=== PATIENT | female | born 1935 | race Caucasian/White ===

== ENCOUNTER 2017-10-04 07:56 | Emergency (ER) | payer MEDICARE, BC, OTHER ==
[2017-10-04 08:15] VITALS: BP 157/96
--- NOTE | 2017-10-04 08:16 | UC ---
Cardiac HPI - HPI Summary HPI Summary: SUDDEN ONSET OF SHARP CHEST PAIN THIS MORNING WHILE SITTING AT HER COMPUTER. LASTED FOR ABOUT 20 MINUTES THEN RESOLVED. PT TOOK 1 ANACIN. HAD SOME RIGHT ARMPIT PAIN WELL BUT DENIES ANY SOB, NAUSEA, SWEATS OR FEVER. HAD A SIMILAR EPISODE ABOUT 1 MONTH AGO. LASTED FOR A SHORTER PERIOD OF TIME. PT DID NOT SEEK MEDICAL EVAL AT THAT TIME. - History of Current Complaint Stated Complaint: CHEST PAIN Time Seen by Provider: 10/04/17 08:02 Hx Obtained From: Patient, Family/Survival Specialist - Onset/Duration: Sudden Onset, Lasting Minutes, Resolved Initial Severity: Severe Current Severity: None Pain Intensity: 0 Chest Pain Location: Diffuse Character: Sharp/Stabbing Aggravating Factor(s): Nothing Alleviating Factor(s): Spontaneous Resolution Associated Signs & Symptoms: Positive: Chest Pain. Negative: Weakness, SOB, Syncope, Fever, Diaphoresis, Nausea/Vomiting, Palpitations, Cough - Allergy/Home Medications Allergies/Adverse Reactions: Allergies Allergy/AdvReac Type Severity Reaction Status Date / Time No Known Allergies Allergy Verified 10/04/17 08:15 Home Medications: Home Medications Aspirin/Caffeine [Anacin 500-32 mg Tablet] 1 tab PO ONCE 10/04/17 [History Confirmed 10/04/17] Cholecalciferol TAB* [Vitamin D TAB*] 1 tab PO DAILY 10/04/17 [History Confirmed 10/04/17] Cyanocobalamin TAB* [Vitamin B12 TAB*] 1 tab PO DAILY 10/04/17 [History Confirmed 10/04/17] Omeprazole 20 mg PO DAILY 10/04/17 [History Confirmed 10/04/17] amLODIPine TAB* [Norvasc 5 mg TAB*] 5 mg PO DAILY 10/04/17 [History Confirmed ] PMH/Surg Hx/FS Hx/Imm Hx Cardiovascular History: Hypertension - Surgical History Surgical History: None Surgery Procedure, Year, and Place: Bilat OOPHROECTOMY, PARATHYROIDECTOMY - Family History Known Family History: Positive: Cardiac Disease, Hypertension - Social History Alcohol Use: Occasionally Substance Use Type: None Smoking Status (MU): Never Smoked Tobacco - Immunization History Most Recent Influenza Vaccination: 2012 Most Recent Tetanus Shot: MORE THAN SIX YEARS AGO Most Recent Pneumonia Vaccination: 2011 Review of Systems Constitutional: Negative Respiratory: Negative Cardiovascular: Chest Pain Gastrointestinal: Negative Genitourinary: Negative All Other Systems Reviewed And Are Negative: Yes Physical Exam Triage Information Reviewed: Yes Appearance: Well-Appearing, No Pain Distress, Well-Nourished Vital Signs: Initial Vital Signs Temp 98.3 F 10/04/17 08:09 Pulse 69 10/04/17 08:09 Resp 18 10/04/17 08:09 BP 157/96 10/04/17 08:09 Pulse Ox 99 10/04/17 08:09 Vital Signs Reviewed: Yes Eyes: Positive: Conjunctiva Clear ENT: Positive: Hearing grossly normal Neck: Positive: Supple, Nontender, No Lymphadenopathy Respiratory Exam: Normal Cardiovascular Exam: Normal Abdomen Description: Positive: Soft Musculoskeletal: Positive: No Edema Neurological: Positive: Alert Psychological: Positive: Normal Response To Family, Age Appropriate Behavior Skin: Negative: rashes Diagnostics - EKG Cardiac Rate: NL - 71BPM Cardiac Rhythm: Sinus: Normal Ectopy: None ST Segment: Non-Specific - T-WAVE FLATTENING DIFFUSELY AND INVERSION V3-V6 - Assessment/Plan Course Of Treatment: TO [facility] BY [facility]. EKG UNCHANGED FROM 07/10/2013. - Clinical Impression Provider Diagnoses: CHEST PAIN Discharge - Discharge Plan Condition: Stable Disposition: OTHER Discharge Disposition Comment: TO [facility] BY [facility] Patient Education Materials: Chest Pain (ED) Referrals: Ian Hoffman MD [Primary Care Provider] - If Needed Additional Instructions: GO DIRECTLY TO THE [facility] FROM HERE FOR FURTHER EVALUATION.
== END 2017-10-04 08:26 ==
LOC: UCEAST 07:56
DX: R07.89 Other chest pain (principal); I10 Essential (primary) hypertension
CPT/HCPCS: 93005; 99211; G0463

== ENCOUNTER 2017-10-04 08:38 | Emergency (ER) | payer MEDICARE, BC ==
[2017-10-04 09:18] LABS: ABS Basophils 0 10^3/ul (0-0.2); ABS Eosinophils 0.1 10^3/ul (0-0.6); ABS Lymphocytes 1.9 10^3/ul (1.0-4.8); ABS Monocytes 0.6 10^3/ul (0-0.8); ABS Neutrophils 3.6 10^3/ul (1.5-7.7); ABS Nucleated RBC 0 10^3/ul; Eosinophil % 2.1 % (0-6); Hematocrit 41 % (35-47); Lymphocyte % 30.2 % (25-47); Mean Corpuscular HGB Conc 34 g/dl (31-36); Mean Corpuscular Hemoglobin 32 pg (27-31); Mean Corpuscular Volume 93 fL (80-97); Mean Platelet Volume 8 um3 (7.4-10.4); Nucleated Red Blood Cells % 0; Platelet Count 310 10^3/ul (150-450); Red Blood Count 4.45 10^6/ul (4.0-5.4); Red Cell Distribution Width 14 % (10.5-15); White Blood Count 6.3 10^3/ul (3.5-10.8)
[2017-10-04] MEDS ORDERED: amLODIPine TAB* 5 MG PO ONE (09:23)
[2017-10-04 09:33] LABS: EGFR Non-African American 110.4 (>60)
--- NOTE | 2017-10-04 09:49 | RAD ---
INDICATION: Chest pain radiating to the back COMPARISON: Most recent chest x-ray is dated November 01, 2016 TECHNIQUE: Single AP portable view of the chest was obtained. FINDINGS: Image quality is compromised due to the relative inferiority of a portable chest x-ray. The heart and mediastinum exhibit normal size and contour. The lungs are grossly clear. There is no evidence of a large pleural effusion. Visualized bones are normal for the patient's age. IMPRESSION: No radiographic evidence for acute cardiopulmonary abnormality on this portable chest x-ray.
[2017-10-04] MEDS ORDERED: Iohexol 350* (CONTRAST) 500 ML MDV IV ONE (11:59)
--- NOTE | 2017-10-04 12:30 | RAD ---
INDICATION: Chest pain, elevated d-dimer. COMPARISON: Comparison is made with the prior CT of the chest from March 15, 2010 and a prior chest x-ray exam from October 04, 2017. TECHNIQUE: A CT angiogram of the chest was performed with intravenous following intravenous injection of 80 ml of Omnipaque 350 nonionic contrast. Contiguous axial sections were obtained from the lung apices through the lung bases. Images were reconstructed in the coronal and sagittal planes. FINDINGS: There is relatively homogeneous opacification of the pulmonary arteries. No intraluminal filling defect or pulmonary embolism is seen. The heart is within normal limits in size. No pericardial effusion is present. The thoracic aorta is normal in caliber and demonstrates homogeneous contrast opacification. No significant enlarged mediastinal or hilar lymph nodes are seen. There is mild dependent bilateral lower lobe subsegmental atelectasis. The lungs are otherwise clear. No pleural effusion is seen. No significant focal osseous abnormality is seen. IMPRESSION: NO EVIDENCE FOR PULMONARY EMBOLISM.
[2017-10-04 14:22] VITALS: BP 131/86
--- NOTE | 2017-10-04 14:43 | RAD ---
INDICATION: Right thumb injury COMPARISON: None TECHNIQUE: AP, lateral, and oblique views were obtained. FINDINGS: There is no acute fracture. 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 The soft tissues are mildly prominent. There is no foreign body. IMPRESSION: NO ACUTE FRACTURE.
--- NOTE | 2017-10-04 20:27 | ED ---
Rickey Mello Stephanie, scribed for Rachna Garza MD on 10/04/17 at 0905 . HPI Chest Pain - HPI Summary HPI Summary: The pt is an 82 y/o F presenting to the ED with c/o CP that began at 07:45 today. The CP lasted 15 minutes and radiated into her back and R arm. She denies SOB, N/V. Pt chewed aspirin s/p CP. The pt denies current CP. The pt reports a similar event where the CP occurred while sitting and lasted about 15 minutes with spontaneous resolution. The pt usually takes Amlodipine 5 mg but she did not take this medication today. - History of Current Complaint Chief Complaint: EDChestPainROMI Time Seen by Provider: 10/04/17 08:58 Hx Obtained From: Patient Onset/Duration: Started Hours Ago - 2, Resolved Timing: Intermittent, Lasting Minutes - 15 Current Severity: None Pain Intensity: 0 Pain Scale Used: 0-10 Numeric Chest Pain Location: Diffuse Chest Pain Radiates: Yes Chest Pain Radiates To:: Back, Arm - R Aggravating Factor(s): Nothing Alleviating Factor(s): Nothing Associated Signs and Symptoms: Negative: Shortness of Breath, Nausea, Vomiting - Allergy/Home Medications Allergies/Adverse Reactions: Allergies Allergy/AdvReac Type Severity Reaction Status Date / Time No Known Allergies Allergy Verified 10/04/17 08:54 Home Medications: Home Medications Carboxymethylcell/Glycerin/Pf [Optive Sensitive] 1 lj BOTH EYES QID 10/04/17 [ History Confirmed 10/04/17] Neomy/Polym/Bacitr/HC OPH OIN* [Cortisporin OPHTH.OINT*] 1 applic RIGHT EYE TID 10/04/17 [History Confirmed 10/04/17] Omeprazole CAP* [Prilosec CAP* 20 MG] 20 mg PO DAILY 10/04/17 [History Confirmed 10/04/17] Vitamin B Complex CAP* [B Complex CAP*] 1 cap PO DAILY 10/04/17 [History Confirmed 10/04/17] PMH/Surg Hx/FS Hx/Imm Hx Endocrine/Hematology History: Denies: Hx Diabetes, Hx Thyroid Disease Cardiovascular History: Reports: Hx Hypertension Denies: Hx Congestive Heart Failure, Hx Pacemaker/ICD Respiratory History: Denies: Hx Asthma, Hx Chronic Obstructive Pulmonary Disease (COPD) GI History: Reports: Hx Gastroesophageal Reflux Disease - ocassionally Denies: Hx Ulcer History: Reports: Hx Kidney Stones Musculoskeletal History: Reports: Hx Osteoporosis, Hx Scoliosis, Other Musculoskeletal History - present left septic knee. Sciatica Sensory History: Reports: Hx Contacts or Glasses Denies: Hx Hearing Aid Opthamlomology History: Reports: Hx Contacts or Glasses Neurological History: Reports: Hx Migraine - occasionally Psychiatric History: Denies: Hx Panic Disorder - Cancer History Hx Chemotherapy: No Hx Radiation Therapy: No - Surgical History Surgery Procedure, Year, and Place: Bilat OOPHROECTOMY, PARATHYROIDECTOMY Hx Anesthesia Reactions: No Infectious Disease History: No Infectious Disease History: Denies: Hx Hepatitis, Hx Human Immunodeficiency Virus (HIV), History Other Infectious Disease, Traveled Outside the [place] in Last 30 Days - Family History Known Family History: Positive: Cardiac Disease, Hypertension - Social History Occupation: Retired Lives: With Family Alcohol Use: Occasionally Substance Use Type: Reports: None Smoking Status (MU): Never Smoked Tobacco Review of Systems Negative: Fever Positive: Chest Pain - radiated to back and R arm Negative: Shortness Of Breath Negative: Vomiting, Nausea All Other Systems Reviewed And Are Negative: Yes Physical Exam - Summary Physical Exam Summary: Appearance: Ill-appearing, moderate pain distress, Well-nourished Skin: Warm, color reflects adequate perfusion Head: Normal Head/Face inspection Eyes: Conjunctiva clear ENT: Normal inspection Neck: Supple, no nodes, no JVD. Respiratory: Lungs clear, Normal breath sounds, no respiratory distress Cardio: RRR, No murmur, pulses normal, brisk capillary refill Abdomen: soft, nontender Bowel sounds: present Musculoskeletal: Strength Intact/ ROM intact. No calf tenderness. No edema. Neuro: Alert, muscle tone normal, facial symmetry, speech normal, sensory/motor intact Psychological: Normal Triage Information Reviewed: Yes Vital Signs On Initial Exam: Initial Vitals Temp Pulse Resp BP Pulse Ox 97.4 F 70 18 128/84 100 10/04/17 08:41 10/04/17 08:41 10/04/17 08:41 10/04/17 08:41 10/04/17 08:41 Vital Signs Reviewed: Yes Diagnostics - Vital Signs Vital Signs Temp Pulse Resp BP Pulse Ox 10/04/17 08:54 72 99 10/04/17 08:52 152/86 10/04/17 08:41 97.4 F 70 18 128/84 100 - Laboratory Result Diagrams: 10/04/17 08:20 10/04/17 08:20 Lab Statement: Any lab studies that have been ordered have been reviewed, and results considered in the medical decision making process. - Radiology CXR Xray Interpretation: No Acute Changes Radiology Interpretation Completed By: Radiologist - No radiographic evidence for acute cardiopulmonary abnormality on this portable chest x-ray. Thumb XRay Xray Interpretation: No Acute Changes Radiology Interpretation Completed By: Radiologist - No acute fracture. - CT Chest/thorax CTA CT Interpretation: No Acute Changes CT Interpretation Completed By: Radiologist - NO EVIDENCE FOR PULMONARY EMBOLISM. - EKG 08:59 Cardiac Rate: NL EKG Rhythm: Sinus Rhythm - [address] Segment: Non-Specific Ectopy: None EKG Interpretation: nml AVIVCT, nml QTc, and left axis (-8). EKG Comparison: No Significant Change Re-Evaluation - Re-Evaluation First Eval Re-Evaluation Time: 11:25 Change: Unchanged Comment: The pt states she feels rested and denies calf pain, SOB and CP. BP is now 138/ 82, Pulse 71, O2 stat 97. Second Eval Re-Evaluation Time: 13:57 Change: Worse - The pt states she has R thumb pain after cutting a cabbage. The pain is located in the thenar eminence. The pt is requesting a thumb Xray. Chest Pain Course/Dx - Course Course Of Treatment: The pt took her own Aspirin at home. She was not given Aspirin in the ER. At 11:25, ED physician discussed results of lab tests with the pt. The pt agrees with treatment plan. Dr. Hoffman called ED physician and advised the pt to make an appointment with them as soon as possible. - Diagnoses Provider Diagnoses: elevated blood pressure under poor contr, Chest pain Discharge - Discharge Plan Condition: Stable Disposition: HOME Patient Education Materials: Chest Pain (ED) Referrals: Ian Hoffman MD [Primary Care Provider] - As Soon As Possible (Called today for an appointment. ) Additional Instructions: RETURN TO ER FOR ANY NEW OR WORSENING SYMPTOMS The documentation as recorded by the Rickey arnold Stephanie accurately reflects the service I personally performed and the decisions made by , Rachna Garza MD.
== END 2017-10-04 14:22 | disposition home or self-care (01) ==
LOC: ED 08:38
DX: R07.9 Chest pain, unspecified (principal); I10 Essential (primary) hypertension; Z79.899 Other long term (current) drug therapy
CPT/HCPCS: 36415; 71045; 71275; 80053; 83605; 83880; 84484; 85025; 85379; 93005; 99283; A9270-GY; Q9967

== ENCOUNTER 2019-05-26 19:23 | Emergency (ER) | payer MEDICARE, BC ==
[2019-05-26] MEDS ORDERED: Morphine INJ* 2 MG/ML 1 ML SYRINGE (TWO MG - NEW SYRINGE VERSION) IV ONE (21:59)
[2019-05-26 22:16] LABS: ABS Eosinophils 0.2 10^3/ul (0-0.6); ABS Lymphocytes 1.5 10^3/ul (1.0-4.8); ABS Monocytes 0.5 10^3/ul (0-0.8); ABS Neutrophils 2.2 10^3/ul (1.5-7.7); Eosinophil % 3.7 %; Hematocrit 40 % (35-47); Hemoglobin 13.3 g/dL (12.0-16.0); Lymphocyte % 34.2 %; Mean Corpuscular HGB Conc 34 g/dL (31-36); Mean Corpuscular Hemoglobin 32 pg (27-31); Mean Corpuscular Volume 95 fL (80-97); Mean Platelet Volume 7.6 fL (7.4-10.4); Nucleated Red Blood Cells % 0.1; Platelet Count 261 10^3/uL (150-450); Red Cell Distribution Width 14 % (10-15); White Blood Count 4.4 10^3/uL (3.5-10.8)
[2019-05-26 22:33] LABS: Albumin 3.9 g/dL (3.2-5.2); Albumin/Globulin Ratio 1.5 (1-3); BUN/Creatinine Ratio 37.3 (8-20); C Reactive Protein 3.53 mg/L (<8.01); Calcium 8.9 mg/dL (8.6-10.3); EGFR African American 117.8 (>60); EGFR Non-African American 97.3 (>60); Globulin 2.6 g/dL (2-4); Potassium 3.4 mmol/L (3.5-5.0); Total Bilirubin 0.4 mg/dL (0.2-1.0); Total Protein 6.5 g/dL (6.4-8.9)
--- NOTE | 2019-05-26 22:55 | ED ---
GI/ HPI - HPI Summary HPI Summary: 83-year-old female presents with flank pain for the past 5 days. States she does have a history kidney stones. She denies any nausea or vomiting. No fevers. No diarrhea constipation. No urinary symptoms. No hematuria. States the pain changes in intensity. No chest pain or shortness of breath. has had ovaries removed. Has history of scoliosis. no injury. no pain into legs. no loss of bowel or bladder. no saddle anaesthesia. took percocet without any relief but this did cause constipation. took gabapentin two doses with some relief. - History of Current Complaint Chief Complaint: EDFlankPain Time Seen by Provider: 05/26/19 21:52 Stated Complaint: SEVERE ABDOMINAL PAIN ON RIGHT SIDE PER PT Pain Intensity: 6 - Allergy/Home Medications Allergies/Adverse Reactions: Allergies Allergy/AdvReac Type Severity Reaction Status Date / Time No Known Allergies Allergy Verified 09/16/18 15:03 PMH/Surg Hx/FS Hx/Imm Hx Endocrine/Hematology History: Denies: Hx Diabetes, Hx Thyroid Disease Cardiovascular History: Reports: Hx Hypertension - MEDICATED Denies: Hx Congestive Heart Failure, Hx Pacemaker/ICD Respiratory History: Denies: Hx Asthma, Hx Chronic Obstructive Pulmonary Disease (COPD) GI History: Reports: Hx Gastroesophageal Reflux Disease - ocassionally Denies: Hx Ulcer History: Reports: Hx Kidney Stones Denies: Hx Renal Disease Musculoskeletal History: Reports: Hx Back Problems, Hx Osteoporosis, Hx Scoliosis, Other Musculoskeletal History - left septic knee. Sciatica Sensory History: Reports: Hx Contacts or Glasses Denies: Hx Hearing Aid Opthamlomology History: Reports: Hx Contacts or Glasses Neurological History: Reports: Hx Migraine - occasionally Comment Only: Other Neuro Impairments/Disorders - PAIN CLINIC PT Psychiatric History: Denies: Hx Panic Disorder - Cancer History Hx Chemotherapy: No Hx Radiation Therapy: No - Surgical History Surgery Procedure, Year, and Place: Bilat OOPHROECTOMY,. PARATHYROIDECTOMY,. HERNIA REPAIR,. RENAL STONE RETRIEVAL,. LEFT KNEE INFECTION WITH DEBRIDEMENT Hx Anesthesia Reactions: No Infectious Disease History: No Infectious Disease History: Denies: Hx Hepatitis, Hx Human Immunodeficiency Virus (HIV), History Other Infectious Disease, Traveled Outside the [place] in Last 30 Days - Family History Known Family History: Positive: Cardiac Disease, Hypertension - Social History Alcohol Use: Weekly Alcohol Amount: 1-2 drinks/week Substance Use Type: Reports: None Smoking Status (MU): Never Smoked Tobacco Review of Systems Negative: Fever Negative: Chest Pain Negative: Shortness Of Breath Positive: Abdominal Pain. Negative: Vomiting, Nausea Positive: flank pain All Other Systems Reviewed And Are Negative: Yes Physical Exam Triage Information Reviewed: Yes Vital Signs On Initial Exam: Initial Vitals Temp Pulse Resp BP Pulse Ox 99.1 F 89 18 168/89 99 05/26/19 19:30 05/26/19 19:30 05/26/19 19:30 05/26/19 19:30 05/26/19 19:30 Vital Signs Reviewed: Yes Appearance: Positive: Well-Appearing Skin: Positive: Warm, Dry Head/Face: Positive: Normal Head/Face Inspection Eyes: Positive: Normal, Conjunctiva Clear ENT: Positive: Pharynx normal Respiratory/Lung Sounds: Positive: Clear to Auscultation, Breath Sounds Present Cardiovascular: Positive: Normal, RRR Abdomen Description: Positive: Nontender, Soft, CVA Tenderness (R) Bowel Sounds: Positive: Present Musculoskeletal: Positive: Normal Neurological: Positive: Normal Psychiatric: Positive: Normal Procedures - Sedation Patient Received Moderate/Deep Sedation with Procedure: No Diagnostics - Vital Signs Vital Signs Temp Pulse Resp BP Pulse Ox 05/26/19 22:06 14 05/26/19 19:30 99.1 F 89 18 168/89 99 - Laboratory Lab Results: Lab Results 05/26/19 05/26/19 05/26/19 Range/Units 22:09 22:09 22:09 WBC 4.4 (3.5-10.8) 10^3/uL RBC 4.20 (3.70-4.87) 10^6 /uL Hgb 13.3 (12.0-16.0) g/dL Hct 40 (35-47) % MCV 95 (80-97) fL MCH 32 H (27-31) pg MCHC 34 (31-36) g/dL RDW 14 (10-15) % Plt Count 261 (150-450) 10^3/uL MPV 7.6 (7.4-10.4) fL Neut % (Auto) 49.9 % Lymph % (Auto) 34.2 % [place] % (Auto) 11.3 % Eos % (Auto) 3.7 % Baso % (Auto) 0.9 % Absolute Neuts (auto) 2.2 (1.5-7.7) 10^3/ul Absolute Lymphs (auto) 1.5 (1.0-4.8) 10^3/ul Absolute Monos (auto) 0.5 (0-0.8) 10^3/ul Absolute Eos (auto) 0.2 (0-0.6) 10^3/ul Absolute Basos (auto) 0.0 (0-0.2) 10^3/ul Absolute Nucleated RBC 0.0 10^3/ul Nucleated RBC % 0.1 Sodium 138 (135-145) mmol/L Potassium 3.4 L (3.5-5.0) mmol/L Chloride 106 (101-111) mmol/L Carbon Dioxide 25 (22-32) mmol/L Anion Gap 7 (2-11) mmol/L BUN 22 (6-24) mg/dL Creatinine 0.59 (0.51-0.95) mg/dL Est GFR ( Amer) 117.8 (>60) Est GFR (Non-Af Amer) 97.3 (>60) BUN/Creatinine Ratio 37.3 H (8-20) Glucose 87 (70-100) mg/dL Lactic Acid 0.6 (0.5-2.0) mmol/L Calcium 8.9 (8.6-10.3) mg/dL Total Bilirubin 0.40 (0.2-1.0) mg/dL AST 15 (13-39) U/L ALT 10 (7-52) U/L Alkaline Phosphatase 57 (34-104) U/L C-Reactive Protein 3.53 (<8.01) mg/L Total Protein 6.5 (6.4-8.9) g/dL Albumin 3.9 (3.2-5.2) g/dL Globulin 2.6 (2-4) g/dL Albumin/Globulin Ratio 1.5 (1-3) Lipase 33 (11.0-82.0) U/L Result Diagrams: 05/26/19 22:09 05/26/19 22:09 Lab Statement: Any lab studies that have been ordered have been reviewed, and results considered in the medical decision making process. - CT abd CT Interpretation Completed By: Radiologist Summary of CT Findings: IMPRESSION: 1. Constipation. No additional findings to correlate with patient's symptomatology. 2. Bilateral nephrolithiasis. 3. Bosniak type I renal cysts. No followup indicated. Re-Evaluation - Re-Evaluation First Eval Re-Evaluation Time: 23:30 Change: Unchanged Comment: pain unchanged with morphine GIGU Course/Dx - Course Course Of Treatment: 83-year-old female presents with flank pain for the past 5 days. States she does have a history kidney stones. She denies any nausea or vomiting. No fevers. No diarrhea constipation. No urinary symptoms. No hematuria. States the pain changes in intensity. No chest pain or shortness of breath. No previous belly surgeries. Has history of scoliosis. On exam tenderness over right flank. Nontender abdomen. White blood count normal. CRP normal. CT shows constipation but no other findings. Urine shows uti. will place on augmentin. told to follow up with primary. patient understand and agrees with plan. - Diagnoses Differential Diagnoses - Female: Pyelonephritis, Urinary Tract Infection, Ureteral Calculi Provider Diagnoses: Flank pain, UTI (urinary tract infection) Discharge ED - Sign-Out/Discharge Documenting (check all that apply): Patient Departure - Discharge Plan Condition: Good Disposition: HOME Prescriptions: Amoxicillin/Clavulanate SUSP* [Augmentin SUSP*] 480 mg PO BID #1 btl Patient Education Materials: Urinary Tract Infection in Women (ED) Referrals: Ian Hoffman MD [Primary Care Provider] - Additional Instructions: take 6ml Augmentin twice a day for 7 days take tyenlol as needed for pain every 6 hours follow up with primary within 5 days Return to ED if develop any new or worsening symptoms - Billing Disposition and Condition Condition: GOOD Disposition: Home
[2019-05-26 23:53] LABS: Urine Appearance Cloudy; Urine Bacteria Absent (Absent); Urine Bilirubin Negative (Negative); Urine Blood 1+ (Negative); Urine Color Yellow; Urine Glucose Negative (Negative); Urine Ketones Trace (Negative); Urine Nitrite Negative (Negative); Urine Protein Negative (Negative); Urine Red Blood Cell 3+(>10/hpf) (Absent); Urine Specific Gravity 1.017 (1.010-1.030); Urine Squamous Epithelial Cell Present (Absent); Urine Urobilinogen Negative (Negative); Urine White Blood Cell 3+(>20/hpf) (Absent)
[2019-05-27] MEDS ORDERED: Amoxicillin/Clavulanate SUSP* 400 MG/5 ML BTL PO ONE (00:02)
[2019-05-27 00:52] VITALS: BP 146/95
[2019-05-27] MEDS ORDERED: Amoxicillin/Clavulan* ORALSYR 80 MG/ML (400 MG/5 ML) PO ONE (01:00)
== END 2019-05-27 00:35 | disposition home or self-care (01) ==
LOC: ED 19:23
DX: R10.84 Generalized abdominal pain (principal); N39.0 Urinary tract infection, site not specified; N20.0 Calculus of kidney; K59.00 Constipation, unspecified; I10 Essential (primary) hypertension; K21.9 Gastro-esophageal reflux disease without esophagitis; Z87.442 Personal history of urinary calculi
CPT/HCPCS: 36415; 74176; 80053; 81003; 81015; 83605; 83690; 85025; 86140; 87086; 96374; 99283; A9270-GY; J2270